=== PATIENT | female | born 1955 | race Caucasian/White ===

== ENCOUNTER → 2021-10-19 | Outpatient (CLI) | payer MEDICARE | LOC: KOH-I 09:38 | DX: K76.0 Fatty (change of) liver, not elsewhere classified (principal) | CPT/HCPCS: 76700 ==

== ENCOUNTER → 2021-11-13 | Outpatient (CLI) | payer MEDICARE | LOC: NM 12:10 | DX: K82.0 Obstruction of gallbladder (principal); R94.8 Abnormal results of function studies of other organs and systems | CPT/HCPCS: 78227; A9537 ==

== ENCOUNTER 2021-12-03 12:37 | Emergency (ER) | payer MEDICARE ==
[2021-12-03 14:26] LABS: HEMOGLOBIN 13.6 gm/dl (12.3-15.3); RED BLOOD COUNT 4.68 M/UL (4.00-5.10); WHITE BLOOD COUNT 12.5 K/UL (4.5-11.0)
[2021-12-03 15:10] LABS: BUN/CREATININE RATIO 18 (0-10)
[2021-12-03] MEDS ORDERED: ONDANSETRON ODT4 MG SL (17:03)
[2021-12-03] MEDS ORDERED: MECLIZINE HCL25 MG PO (17:03)
== END 2021-12-03 17:47 | disposition home or self-care (01) ==
LOC: ER1 12:37
PROVIDERS: Physician Assistant
DX: E87.1 Hypo-osmolality and hyponatremia (principal); R42 Dizziness and giddiness; I10 Essential (primary) hypertension; E11.9 Type 2 diabetes mellitus without complications
CPT/HCPCS: 70450; 80053; 81001; 82550; 82553; 83874; 84484; 85025; 93005; 96374; 99284; J2405